=== PATIENT | male | born 1955 | race Caucasian/White ===

== ENCOUNTER 2018-10-03 10:57 | Outpatient (CLI) | payer MEDICARE ==
[2018-10-03] VITALS (21 sets, daily range): BP systolic 158–193; BP diastolic 83–106
== END 2018-10-03 23:59 | disposition home or self-care (01) ==
LOC: CARD DIAG 10:57
PROVIDERS: ATTEND Internal Medicine Cardiovascular Disease
DX: R55 Syncope and collapse (principal); F17.200 Nicotine dependence, unspecified, uncomplicated
CPT/HCPCS: 93660

== ENCOUNTER 2019-08-23 11:28 | Emergency (ER) | payer MEDICARE ==
[~2019-08-23] VITALS: Ht 167.6 cm; Wt 129.6 kg
[~2019-08-23 11:28] MED LIST: ALFU10TA PO; CHOL400T14 PO; ENOX40DI11 SQ; FURO80TA87 PO; LISI40TA4 PO; METO25TA6 PO; NAPR-56 PO; NOR5T PO; POTA10CA44 PO
--- NOTE | 2019-08-23 12:55 | NUR ---
vasc arrived [id number]
[2019-08-23 14:26] VITALS: BP 165/73
== END 2019-08-23 14:27 | disposition home or self-care (01) ==
LOC: ER 11:29
DX: Z46.6 Encounter for fitting and adjustment of urinary device (principal); M19.90 Unspecified osteoarthritis, unspecified site; Z98.890 Other specified postprocedural states; Z79.899 Other long term (current) drug therapy
CPT/HCPCS: 51702; 93971; 99284; 99285

== ENCOUNTER 2024-03-06 16:45 | Inpatient (IN) | payer BC, MEDICARE ==
[~2024-03-06] VITALS: Ht 167.6 cm; Wt 134.9 kg
[~2024-03-06 16:45] MED LIST changes: +LISI40TA13 PO; -LISI40TA4 PO; +LOP25T PO; -METO25TA6 PO; -POTA10CA44 PO; +POTA10CA95 PO
[2024-03-06 17:48] LABS: BASOPHILS % (AUTO) 0.1 % (0-1); EOSINOPHILS % (AUTO) 0 % (0-6); HEMATOCRIT 41.7 % (42.0-52.0); HEMOGLOBIN 13.9 g/dl (14.0-17.9); LYMPHOCYTES # (AUTO) 0.3 X10'3 (1.1-4.8); MEAN CORPUSCULAR HEMOGLOBIN 30.3 PG (27.0-31.0); MEAN CORPUSCULAR HGB CONC 33.4 g/dL (33.0-36.5); MEAN CORPUSCULAR VOLUME 90.8 FL (78-98); MEAN PLATELET VOLUME 8.4 FL (7.4-10.4); MONOCYTES # (AUTO) 0.5 X10'3 (0-0.9); MONOCYTES % (AUTO) 3.6 % (2-12); NEUTROPHILS # (AUTO) 13.9 X10'3 (1.8-7.7); NEUTROPHILS % (AUTO) 94.3 % (42-75); PLATELET COUNT 131 X10'3 (140-440); RED BLOOD COUNT 4.59 X10'6 (4.70-6.10); RED CELL DISTRIBUTION WIDTH 14.5 % (11.5-14.5); WHITE BLOOD COUNT 14.7 X10'3 (4.5-11.0)
[2024-03-06] MEDS: piperacillin/tazo 3.375gm/50ml 50 ML IV ONE (18:08)
[2024-03-06] MEDS: vancomycin/NS 1 GM ADD-VANTAGE 250 ML X 1 DOSE IV ONE (18:18)
[2024-03-06 18:24] LABS: ALBUMIN 3.1 G/DL (3.4-5.0); ANION GAP 8 (8-16); BLOOD UREA NITROGEN 20 MG/DL (7-18); BUN/CREATININE RATIO 10.8 (10.0-20.0); CALCIUM 8.7 MG/DL (8.5-10.1); CHLORIDE 103 MMOL/L (99-107); CREATININE 1.86 MG/DL (0.60-1.10); GLUCOSE 113 MG/DL (70-104); POTASSIUM 3.6 MMOL/L (3.5-5.1); PRO BRAIN NATRIURETIC PEPTIDE 3526 PG/ML (0-125); SODIUM 139 MMOL/L (135-145); TOTAL CARBON DIOXIDE 27.7 MMOL/L (24-32); eCRCL 34 ML/MIN; eGFR 36 ML/MIN
[2024-03-06 18:58] LABS: D-DIMER 0.87 MG/L FEU (0-0.50)
[2024-03-06] MEDS ORDERED: magnesium sulf-water 2g/50mL 50 ML IV PRN (21:55)
[2024-03-06] MEDS ORDERED: PERFLUTREN PROTEIN-A MICROSPHR (Optison) 0.22 MG/ML 3ML VIAL IV PRN (21:55)
[2024-03-06] MEDS ORDERED: potassium Cl 20 mEq SR tablet PO PRN (21:55)
[2024-03-06] MEDS ORDERED: magnesium sulf-water 4G/100mL 100 ML IV PRN (21:55)
[2024-03-06] MEDS ORDERED: ondansetron/PF 4mg/2ml inj IV PRN (21:55)
[2024-03-06] MEDS ORDERED: potassium Cl 40MEQ/1/2NS 520ml 520 ML IV PRN (21:55)
[2024-03-06] MEDS ORDERED: magnesium Cl slow-release 64mg tablet PO PRN (21:55)
[2024-03-06] MEDS ORDERED: magnesium hydroxide 30ml (MOM) UD suspension PO PRN (21:55)
[2024-03-06] MEDS ORDERED: mag hydrox/Alum hydrox/simeth 30ml oral suspension PO PRN (21:55)
[2024-03-06] MEDS ORDERED: iohexol 300mg/ml 100ml inj. ONE (22:56)
[2024-03-06] MEDS ORDERED: BACL10TA2 PO (23:50)
[2024-03-06] MEDS ORDERED: CLON0.1T2 PO (23:50)
[2024-03-06] MEDS ORDERED: FURO40TA4 PO (23:50)
[2024-03-06] MEDS ORDERED: FLO0.4C PO (23:50)
[2024-03-06] MEDS ORDERED: ATOR40TA72 PO (23:50)
[2024-03-06] MEDS ORDERED: AMLO10TA13 PO (23:50)
[2024-03-06] MEDS ORDERED: DILT240C47 PO (23:50)
[2024-03-06] MEDS ORDERED: FERR324T PO (23:50)
[2024-03-06] MEDS ORDERED: CARV-50 PO (23:50)
[2024-03-07] VITALS (8 sets, daily range): BP systolic 114–192; BP diastolic 49–97; PULSE 64–85; RESP 16–20; TEMP 97.5–102.5; O2SAT 91–97
[2024-03-07] MEDS: heparin, porcine 5000 units/ml vial SQ SCH
[2024-03-07 00:23] LABS: BILIRUBIN,URINE NEGATIVE (Neg); CLARITY,URINE CLOUDY (Clear); COLOR,URINE YELLOW (Yellow); GLUCOSE, URINE NEGATIVE (Neg); KETONES,URINE NEGATIVE (Neg); LEUKOCYTE ESTERASE ,URINE NEGATIVE (Neg); OCCULT BLOOD,URINE NEGATIVE (Neg); PH,URINE 5.5 (4.8-8.0); PROTEIN,URINE 30 mg/dl (Neg); UROBILINOGEN,URINE 0.2 E.U/dL (0.2-1.0)
[2024-03-07 00:26] LABS: NITRITES, URINE NEGATIVE (Neg); UA COLLECTION TYPE URINAL
[2024-03-07 00:32] LABS: BACTERIA,URINE FEW /HPF (Neg); COARSE GRANULAR CAST 0-3 /LPF (NEGATIVE); RBC,URINE 0-2 /HPF (0-2); SQUAMOUS EPITHELIAL CELL,UR MODERATE /LPF (FEW)
[2024-03-07] MEDS: normal saline 1000ml 1,000 ML IV SCH (00:52)
[2024-03-07] MEDS: HYDROcodone/acetaminophen 10/325mg tab PO PRN (05:15)
[2024-03-07 05:50] LABS: BASOPHILS % (AUTO) 0.2 % (0-1); EOSINOPHILS % (AUTO) 0 % (0-6); HEMATOCRIT 40.2 % (42.0-52.0); HEMOGLOBIN 13.3 g/dl (14.0-17.9); LYMPHOCYTES # (AUTO) 0.4 X10'3 (1.1-4.8); LYMPHOCYTES % (AUTO) 3.1 % (21-51); MEAN CORPUSCULAR HEMOGLOBIN 30.2 PG (27.0-31.0); MEAN CORPUSCULAR HGB CONC 33.2 g/dL (33.0-36.5); MEAN CORPUSCULAR VOLUME 90.9 FL (78-98); MEAN PLATELET VOLUME 8.4 FL (7.4-10.4); MONOCYTES # (AUTO) 0.4 X10'3 (0-0.9); MONOCYTES % (AUTO) 3.5 % (2-12); NEUTROPHILS # (AUTO) 11.4 X10'3 (1.8-7.7); NEUTROPHILS % (AUTO) 93.2 % (42-75); PLATELET COUNT 114 X10'3 (140-440); RED BLOOD COUNT 4.42 X10'6 (4.70-6.10); RED CELL DISTRIBUTION WIDTH 14.7 % (11.5-14.5); WHITE BLOOD COUNT 12.3 X10'3 (4.5-11.0)
[2024-03-07] MEDS: acetaminophen 325mg tablet PO PRN (06:04)
[2024-03-07 06:21] LABS: ALANINE AMINOTRANSFERASE 12 U/L (12-78); ALBUMIN 2.8 G/DL (3.4-5.0); ALBUMIN/GLOBULIN RATIO 0.8 (1.1-1.5); ALKALINE PHOSPHATASE 84 IU/L (46-116); ANION GAP 11 (8-16); ASPARTATE AMINO TRANSFERASE 15 U/L (10-37); BLOOD UREA NITROGEN 22 MG/DL (7-18); BUN/CREATININE RATIO 13.4 (10.0-20.0); CALCIUM 8.3 MG/DL (8.5-10.1); CHLORIDE 102 MMOL/L (99-107); CREATININE 1.64 MG/DL (0.60-1.10); GLUCOSE 97 MG/DL (70-104); MAGNESIUM 1.7 MG/DL (1.5-2.4); POTASSIUM 3.4 MMOL/L (3.5-5.1); SODIUM 139 MMOL/L (135-145); TOTAL CARBON DIOXIDE 25.9 MMOL/L (24-32); TOTAL PROTEIN 6.4 G/DL (6.4-8.2); eCRCL 38 ML/MIN; eGFR 42 ML/MIN
[2024-03-07] MEDS: carVEDilol 12.5mg tablet PO SCH (08:22)
[2024-03-07] MEDS: atorvastatin 20mg tablet PO SCH (08:22)
[2024-03-07] MEDS: potassium Cl 20 mEq SR tablet PO PRN (08:22)
[2024-03-07] MEDS: potassium chloride 10mEq ER tablet PO SCH (08:23)
[2024-03-07] MEDS: amLODIPine 5mg tablet PO SCH (08:23)
[2024-03-07] MEDS: diltiazem CD 120mg capsule (once-daily) PO SCH (08:23)
[2024-03-07] MEDS: docusate sod 100mg capsule PO SCH (08:23)
[2024-03-07] MEDS: cloNIDine 0.1 mg tablet PO SCH (08:23)
[2024-03-07] MEDS: K and/or MAG REPLACEMENT MC SCH (08:24)
[2024-03-07] MEDS: CefTRIAXone 2gm/D5W 50ml BAG 50 ML IV SCH (08:24)
[2024-03-07] MEDS: vancomycin/NS 1 GM ADD-VANTAGE 250 ML IV SCH (09:00)
[2024-03-07] MEDS ORDERED: vancomycin/NS 1 GM ADD-VANTAGE 250 ML IV SCH (18:00)
[2024-03-08] VITALS (7 sets, daily range): BP systolic 111–173; BP diastolic 60–82; PULSE 61–71; RESP 16–18; TEMP 97.6–98; O2SAT 93–98
[2024-03-08 05:46] LABS: BASOPHILS % (AUTO) 0.1 % (0-1); EOSINOPHILS % (AUTO) 0.4 % (0-6); HEMATOCRIT 38.1 % (42.0-52.0); HEMOGLOBIN 12.5 g/dl (14.0-17.9); LYMPHOCYTES # (AUTO) 0.4 X10'3 (1.1-4.8); LYMPHOCYTES % (AUTO) 4.6 % (21-51); MEAN CORPUSCULAR HGB CONC 32.7 g/dL (33.0-36.5); MEAN CORPUSCULAR VOLUME 91.8 FL (78-98); MEAN PLATELET VOLUME 8.9 FL (7.4-10.4); MONOCYTES # (AUTO) 0.5 X10'3 (0-0.9); MONOCYTES % (AUTO) 5.6 % (2-12); NEUTROPHILS # (AUTO) 8.3 X10'3 (1.8-7.7); NEUTROPHILS % (AUTO) 89.3 % (42-75); PLATELET COUNT 109 X10'3 (140-440); RED BLOOD COUNT 4.15 X10'6 (4.70-6.10); RED CELL DISTRIBUTION WIDTH 14.7 % (11.5-14.5); WHITE BLOOD COUNT 9.2 X10'3 (4.5-11.0)
[2024-03-08 06:43] LABS: ALANINE AMINOTRANSFERASE 18 U/L (12-78); ALBUMIN 2.7 G/DL (3.4-5.0); ALBUMIN/GLOBULIN RATIO 0.7 (1.1-1.5); ALKALINE PHOSPHATASE 77 IU/L (46-116); ANION GAP 6 (8-16); ASPARTATE AMINO TRANSFERASE 18 U/L (10-37); BILIRUBIN,TOTAL 0.7 MG/DL (0.1-1.0); BLOOD UREA NITROGEN 22 MG/DL (7-18); BUN/CREATININE RATIO 15.2 (10.0-20.0); CALCIUM 8.4 MG/DL (8.5-10.1); CHLORIDE 106 MMOL/L (99-107); CREATININE 1.45 MG/DL (0.60-1.10); GLUCOSE 107 MG/DL (70-104); SODIUM 139 MMOL/L (135-145); TOTAL CARBON DIOXIDE 26.8 MMOL/L (24-32); TOTAL PROTEIN 6.4 G/DL (6.4-8.2); eCRCL 43 ML/MIN; eGFR 48 ML/MIN
[2024-03-08] MEDS: furosemide 40mg/4ml inj IV SCH (12:11)
[2024-03-08] MEDS: VANCOMYCIN LEVEL IV ONE (20:30)
[2024-03-08] MEDS: doxycycline inj 100 MG in normal saline 100ml IV soln 100 ML IV SCH (20:38)
[2024-03-09 06:30] VITALS: BP 117/87; PULSE 68; RESP 16; TEMP 98.3; O2SAT 95
[2024-03-09 08:00] VITALS: RESP 16; O2SAT 95
[2024-03-09 08:05] LABS: BASOPHILS % (AUTO) 0.2 % (0-1); EOSINOPHILS # (AUTO) 0.2 X10'3 (0-0.9); EOSINOPHILS % (AUTO) 2.7 % (0-6); HEMATOCRIT 39.1 % (42.0-52.0); LYMPHOCYTES # (AUTO) 0.5 X10'3 (1.1-4.8); LYMPHOCYTES % (AUTO) 6.2 % (21-51); MEAN CORPUSCULAR HEMOGLOBIN 30.7 PG (27.0-31.0); MEAN CORPUSCULAR HGB CONC 33.2 g/dL (33.0-36.5); MEAN CORPUSCULAR VOLUME 92.4 FL (78-98); MEAN PLATELET VOLUME 9.7 FL (7.4-10.4); MONOCYTES # (AUTO) 0.7 X10'3 (0-0.9); MONOCYTES % (AUTO) 9.1 % (2-12); NEUTROPHILS # (AUTO) 6.5 X10'3 (1.8-7.7); NEUTROPHILS % (AUTO) 81.8 % (42-75); PLATELET COUNT 118 X10'3 (140-440); RED BLOOD COUNT 4.23 X10'6 (4.70-6.10); RED CELL DISTRIBUTION WIDTH 14.8 % (11.5-14.5); WHITE BLOOD COUNT 7.9 X10'3 (4.5-11.0)
[2024-03-09 08:36] LABS: ALANINE AMINOTRANSFERASE 10 U/L (12-78); ALBUMIN 2.4 G/DL (3.4-5.0); ALBUMIN/GLOBULIN RATIO 0.6 (1.1-1.5); ALKALINE PHOSPHATASE 75 IU/L (46-116); ANION GAP 9 (8-16); ASPARTATE AMINO TRANSFERASE 15 U/L (10-37); BILIRUBIN,TOTAL 0.5 MG/DL (0.1-1.0); BLOOD UREA NITROGEN 22 MG/DL (7-18); BUN/CREATININE RATIO 17.3 (10.0-20.0); CALCIUM 8.5 MG/DL (8.5-10.1); CHLORIDE 107 MMOL/L (99-107); CREATININE 1.27 MG/DL (0.60-1.10); GLUCOSE 99 MG/DL (70-104); MAGNESIUM 2.3 MG/DL (1.5-2.4); POTASSIUM 4.2 MMOL/L (3.5-5.1); SODIUM 141 MMOL/L (135-145); TOTAL CARBON DIOXIDE 24.8 MMOL/L (24-32); TOTAL PROTEIN 6.1 G/DL (6.4-8.2); eCRCL 50 ML/MIN; eGFR 56 ML/MIN
[2024-03-09 10:00] VITALS: BP 105/63; PULSE 61; RESP 20; TEMP 97.6; O2SAT 96
[2024-03-09] MEDS: clindamycin-Cleocin 900mg/D5W 50 ML IV SCH (15:38)
[2024-03-09] MEDS: cefazolin 2gm/D5W 100mL 100 ML IV SCH (16:35)
[2024-03-09 19:15] VITALS: BP 152/74; PULSE 70; RESP 18; TEMP 98; O2SAT 94
[2024-03-09 20:00] VITALS: RESP 18; O2SAT 94
[2024-03-09 22:00] VITALS: BP 140/89; PULSE 64; RESP 20; TEMP 99.4; O2SAT 94
[2024-03-10] VITALS (8 sets, daily range): BP systolic 129–163; BP diastolic 72–83; PULSE 54–76; RESP 16–20; TEMP 96.7–98.5; O2SAT 93–99
[2024-03-10 06:32] LABS: BASOPHILS % (AUTO) 0.2 % (0-1); EOSINOPHILS # (AUTO) 0.2 X10'3 (0-0.9); EOSINOPHILS % (AUTO) 2.2 % (0-6); HEMATOCRIT 37.5 % (42.0-52.0); HEMOGLOBIN 12.6 g/dl (14.0-17.9); LYMPHOCYTES # (AUTO) 0.5 X10'3 (1.1-4.8); LYMPHOCYTES % (AUTO) 5.5 % (21-51); MEAN CORPUSCULAR HEMOGLOBIN 30.4 PG (27.0-31.0); MEAN CORPUSCULAR HGB CONC 33.7 g/dL (33.0-36.5); MEAN CORPUSCULAR VOLUME 90.3 FL (78-98); MONOCYTES # (AUTO) 0.8 X10'3 (0-0.9); MONOCYTES % (AUTO) 9.1 % (2-12); NEUTROPHILS # (AUTO) 6.8 X10'3 (1.8-7.7); PLATELET COUNT 143 X10'3 (140-440); RED BLOOD COUNT 4.16 X10'6 (4.70-6.10); RED CELL DISTRIBUTION WIDTH 14.8 % (11.5-14.5); WHITE BLOOD COUNT 8.2 X10'3 (4.5-11.0)
[2024-03-10 06:47] LABS: ALANINE AMINOTRANSFERASE 17 U/L (12-78); ALBUMIN 2.5 G/DL (3.4-5.0); ALBUMIN/GLOBULIN RATIO 0.6 (1.1-1.5); ALKALINE PHOSPHATASE 70 IU/L (46-116); ANION GAP 7 (8-16); ASPARTATE AMINO TRANSFERASE 12 U/L (10-37); BILIRUBIN,TOTAL 0.5 MG/DL (0.1-1.0); BLOOD UREA NITROGEN 17 MG/DL (7-18); CALCIUM 8.5 MG/DL (8.5-10.1); CHLORIDE 106 MMOL/L (99-107); CREATININE 1.13 MG/DL (0.60-1.10); GLUCOSE 111 MG/DL (70-104); MAGNESIUM 1.9 MG/DL (1.5-2.4); POTASSIUM 3.9 MMOL/L (3.5-5.1); SODIUM 141 MMOL/L (135-145); TOTAL PROTEIN 6.4 G/DL (6.4-8.2); eCRCL 56 ML/MIN; eGFR 64 ML/MIN
[2024-03-11 06:41] LABS: BASOPHILS % (AUTO) 0.3 % (0-1); EOSINOPHILS # (AUTO) 0.2 X10'3 (0-0.9); EOSINOPHILS % (AUTO) 2.2 % (0-6); HEMATOCRIT 37.7 % (42.0-52.0); HEMOGLOBIN 12.7 g/dl (14.0-17.9); LYMPHOCYTES # (AUTO) 0.5 X10'3 (1.1-4.8); LYMPHOCYTES % (AUTO) 5.9 % (21-51); MEAN CORPUSCULAR HEMOGLOBIN 30.5 PG (27.0-31.0); MEAN CORPUSCULAR HGB CONC 33.6 g/dL (33.0-36.5); MEAN CORPUSCULAR VOLUME 90.8 FL (78-98); MEAN PLATELET VOLUME 9.2 FL (7.4-10.4); MONOCYTES # (AUTO) 0.8 X10'3 (0-0.9); MONOCYTES % (AUTO) 9.2 % (2-12); NEUTROPHILS # (AUTO) 7.5 X10'3 (1.8-7.7); NEUTROPHILS % (AUTO) 82.4 % (42-75); PLATELET COUNT 160 X10'3 (140-440); RED BLOOD COUNT 4.15 X10'6 (4.70-6.10); RED CELL DISTRIBUTION WIDTH 14.4 % (11.5-14.5); WHITE BLOOD COUNT 9.1 X10'3 (4.5-11.0)
[2024-03-11 06:57] VITALS: BP 152/72; PULSE 59; RESP 16; TEMP 97.8; O2SAT 96
[2024-03-11 06:59] LABS: ALANINE AMINOTRANSFERASE 12 U/L (12-78); ALBUMIN 2.3 G/DL (3.4-5.0); ALBUMIN/GLOBULIN RATIO 0.6 (1.1-1.5); ALKALINE PHOSPHATASE 76 IU/L (46-116); ANION GAP 6 (8-16); ASPARTATE AMINO TRANSFERASE 15 U/L (10-37); BILIRUBIN,TOTAL 0.3 MG/DL (0.1-1.0); BLOOD UREA NITROGEN 16 MG/DL (7-18); BUN/CREATININE RATIO 14.5 (10.0-20.0); CALCIUM 8.4 MG/DL (8.5-10.1); CHLORIDE 105 MMOL/L (99-107); GLUCOSE 111 MG/DL (70-104); POTASSIUM 3.8 MMOL/L (3.5-5.1); SODIUM 140 MMOL/L (135-145); TOTAL PROTEIN 6.1 G/DL (6.4-8.2); eCRCL 57 ML/MIN; eGFR 66 ML/MIN
[2024-03-11 08:00] VITALS: RESP 18
[2024-03-11 09:24] VITALS: BP 161/75; PULSE 69
[2024-03-11 18:30] VITALS: BP 152/75; PULSE 62; RESP 18; TEMP 98; O2SAT 95
[2024-03-11 20:35] VITALS: PULSE 57; RESP 18; O2SAT 93
[2024-03-11 22:00] VITALS: BP 149/72; PULSE 57; RESP 14; TEMP 97.5; O2SAT 94
[2024-03-12 06:00] VITALS: BP 164/85; PULSE 61; RESP 22; TEMP 97.6; O2SAT 97
[2024-03-12 08:00] VITALS: RESP 18; O2SAT 95
[2024-03-12 09:32] VITALS: PULSE 50; RESP 20; O2SAT 94
[2024-03-12 10:00] VITALS: BP 137/55; PULSE 76; RESP 18; TEMP 98.6; O2SAT 96
[2024-03-12] MEDS ORDERED: CEPH-585 PO (14:28)
[2024-03-12] MEDS ORDERED: CLIN-97 PO (14:28)
[2024-03-15] MEDS ORDERED: LISI20TA28 PO (10:07)
[2024-03-15] MEDS ORDERED: CEPH250T PO (13:46)
[2024-03-15] MEDS ORDERED: CLIN-232 PO (13:46)
[2024-03-15] MEDS ORDERED: ACET-1008 PO (13:47)
== END 2024-03-12 15:08 | disposition home or self-care (01) | DRG 871 ==
LOC: ER 16:45 → ED HOLD 22:13 → ORTHO 4S 03-07 00:05 → SUR 3N 03-09 19:15
PROVIDERS: ADMIT Surgery; ATTEND Internal Medicine
PROC: 5A09357 Assistance with Respiratory Ventilation, Less than 24 Consecutive Hours, Continuous Positive Airway Pressure (ICD-10-PCS; principal; 2024-03-07)
PROC: 5A09357 Assistance with Respiratory Ventilation, Less than 24 Consecutive Hours, Continuous Positive Airway Pressure (ICD-10-PCS; 2024-03-10)
PROC: 5A09357 Assistance with Respiratory Ventilation, Less than 24 Consecutive Hours, Continuous Positive Airway Pressure (ICD-10-PCS; 2024-03-11)
DX: A41.9 Sepsis, unspecified organism (principal); I50.33 Acute on chronic diastolic (congestive) heart failure; N17.0 Acute kidney failure with tubular necrosis; L03.116 Cellulitis of left lower limb; Z68.42 Body mass index [BMI] 45.0-49.9, adult; G47.33 Obstructive sleep apnea (adult) (pediatric); E66.9 Obesity, unspecified; I11.0 Hypertensive heart disease with heart failure; N40.0 Benign prostatic hyperplasia without lower urinary tract symptoms; Z96.611 Presence of right artificial shoulder joint; Z96.653 Presence of artificial knee joint, bilateral; Z85.46 Personal history of malignant neoplasm of prostate; F17.210 Nicotine dependence, cigarettes, uncomplicated; M51.37 Other intervertebral disc degeneration, lumbosacral region; E78.5 Hyperlipidemia, unspecified; E87.6 Hypokalemia
CPT/HCPCS: 36415; 71045; 72129; 72132; 80048; 80053; 80202; 81001; 83605; 83735; 83880; 84145; 85025; 85379; 85651; 86140; 87040; 87081; 87088; 93005; 93306; 93971; 94760; 96365; 96367; 97110; 97161; 99285; A4615; A6449; G0378; J0690; J0696; J1644; J1940; J2543; J3370; J3490; J7030; J7040; Q9967

== ENCOUNTER 2024-09-27 11:01 | Emergency (ER) | payer OTHER ==
[~2024-09-27] VITALS: Ht 167.6 cm; Wt 121.7 kg
[~2024-09-27 11:01] MED LIST changes: +ACET-1008 PO; +AMLO10TA13 PO; +ATOR40TA72 PO; +CARV-50 PO; +CLON0.1T2 PO; +DILT240C47 PO; -ENOX40DI11 SQ; +FURO40TA4 PO; -FURO80TA87 PO; +LISI20TA28 PO; -LISI40TA13 PO; -LOP25T PO; -NAPR-56 PO; -NOR5T PO
[2024-09-27 12:18] LABS: BASOPHILS % (AUTO) 0.2 % (0-1); EOSINOPHILS # (AUTO) 0.1 X10'3 (0-0.9); EOSINOPHILS % (AUTO) 0.6 % (0-6); HEMATOCRIT 50.5 % (42.0-52.0); HEMOGLOBIN 17.5 g/dl (14.0-17.9); LYMPHOCYTES # (AUTO) 0.8 X10'3 (1.1-4.8); LYMPHOCYTES % (AUTO) 8.3 % (21-51); MEAN CORPUSCULAR HGB CONC 34.7 g/dL (33.0-36.5); MEAN CORPUSCULAR VOLUME 89.2 FL (78-98); MEAN PLATELET VOLUME 7.6 FL (7.4-10.4); MONOCYTES # (AUTO) 0.8 X10'3 (0-0.9); MONOCYTES % (AUTO) 7.9 % (2-12); NEUTROPHILS # (AUTO) 8.2 X10'3 (1.8-7.7); PLATELET COUNT 217 X10'3 (140-440); RED BLOOD COUNT 5.66 X10'6 (4.70-6.10); RED CELL DISTRIBUTION WIDTH 14.9 % (11.5-14.5); WHITE BLOOD COUNT 9.9 X10'3 (4.5-11.0)
[2024-09-27 12:37] LABS: ALANINE AMINOTRANSFERASE 18 U/L (12-78); ALBUMIN 4.2 G/DL (3.4-5.0); ALKALINE PHOSPHATASE 148 IU/L (46-116); ANION GAP 9 (8-16); ASPARTATE AMINO TRANSFERASE 14 U/L (10-37); BILIRUBIN,TOTAL 1.1 MG/DL (0.1-1.0); BLOOD UREA NITROGEN 20 MG/DL (7-18); BUN/CREATININE RATIO 18.2 (10.0-20.0); CALCIUM 9.4 MG/DL (8.5-10.1); CHLORIDE 103 MMOL/L (99-107); GLUCOSE 97 MG/DL (70-104); LIPASE 24 U/L (16-77); POTASSIUM 3.5 MMOL/L (3.5-5.1); SODIUM 143 MMOL/L (135-145); TOTAL CARBON DIOXIDE 30.8 MMOL/L (24-32); TOTAL PROTEIN 8.6 G/DL (6.4-8.2); eCRCL 57 ML/MIN; eGFR 66 ML/MIN
[2024-09-27] MEDS: ondansetron/PF 4mg/2ml inj IV ONE (13:10)
[2024-09-27] MEDS: enalaprilat 1.25mg/ml 2ml vial IV ONE (13:10)
[2024-09-27] MEDS: normal saline 1000ml 1,000 ML IV ONE (13:12)
[2024-09-27] MEDS: IOHEXOL 12MG/ML oral solution 500 ML BOTTLE PO ONE (13:33)
[2024-09-27 13:50] LABS: PRO BRAIN NATRIURETIC PEPTIDE 586 PG/ML (0-125)
[2024-09-27] MEDS ORDERED: FLO0.4C (14:23)
[2024-09-27] MEDS ORDERED: POTA-192 PO (14:23)
[2024-09-27] MEDS ORDERED: FERR324T PO (14:23)
[2024-09-27] MEDS ORDERED: IBUP-1986 PO (14:23)
[2024-09-27] MEDS ORDERED: iohexol 350MG/ML 100ml bottle IV ONE (14:30)
[2024-09-27 15:48] LABS: BILIRUBIN,URINE NEGATIVE (Neg); CLARITY,URINE CLEAR (Clear); COLOR,URINE YELLOW (Yellow); GLUCOSE, URINE NEGATIVE (Neg); KETONES,URINE 15 mg/dl (Neg); LEUKOCYTE ESTERASE ,URINE NEGATIVE (Neg); NITRITES, URINE NEGATIVE (Neg); OCCULT BLOOD,URINE NEGATIVE (Neg); PROTEIN,URINE 100 mg/dl (Neg); UROBILINOGEN,URINE 0.2 E.U/dL (0.2-1.0)
[2024-09-27 15:51] LABS: UA COLLECTION TYPE URINAL
[2024-09-27 15:55] LABS: RBC,URINE 0-2 /HPF (0-2); WBC,URINE 0-4 /HPF (0-4)
[2024-09-27 15:56] LABS: BACTERIA,URINE NONE SEEN /HPF (Neg); CELLULAR CAST 0-4 /LPF (NEGATIVE); SQUAMOUS EPITHELIAL CELL,UR FEW /LPF (FEW)
[2024-09-27] MEDS ORDERED: ONDA-245 PO (16:02)
[2024-09-27 17:40] VITALS: BP 164/100; PULSE 89; RESP 18; TEMP 97.6; O2SAT 98
== END 2024-09-27 17:41 | disposition home or self-care (01) ==
LOC: ER 11:02
DX: R11.2 Nausea with vomiting, unspecified (principal); I10 Essential (primary) hypertension; M19.90 Unspecified osteoarthritis, unspecified site; N40.0 Benign prostatic hyperplasia without lower urinary tract symptoms; Z79.899 Other long term (current) drug therapy; Z79.1 Long term (current) use of non-steroidal anti-inflammatories (NSAID)
CPT/HCPCS: 36415; 71045; 71260; 74177; 80053; 81001; 83690; 83880; 84484; 85025; 93005; 96361; 96374; 96375; 99285; J2405; J3490; J7030; Q9967